=== PATIENT | male | born 1945 | race Caucasian/White ===

== ENCOUNTER 2018-10-20 12:29 | Emergency (ER) | payer OTHER ==
[~2018-10-20] VITALS: Ht 172.7 cm; Wt 113.4 kg
[2018-10-20 12:36] VITALS: BP 165/63
[2018-10-20] MEDS ORDERED: ALBUTEROL SULF 2.5 MG/0.5ML(0.5%) NEB SOLN NEB ONE (13:15)
[2018-10-20] MEDS ORDERED: IPRATROPIUM BROM 0.5 MG/2.5ML INH SOL NEB ONE (13:15)
[2018-10-20] MEDS ORDERED: cefTRIAXone SOD 1,000 MG VL IM ONE (13:15)
[2018-10-20] MEDS ORDERED: methylPREDNISolone SOD SUCC 125 MG/2 ML VL IM ONE (13:15)
== END 2018-10-20 13:56 | disposition home or self-care (01) ==
LOC: ER 12:37
DX: J20.9 Acute bronchitis, unspecified (principal); J02.9 Acute pharyngitis, unspecified; I48.91 Unspecified atrial fibrillation
CPT/HCPCS: 71046; 94640; 96372; 99283; J0696; J2930; J7611; J7644